=== PATIENT | female | born 1985 | race Caucasian/White ===

== ENCOUNTER 2017-06-02 01:32 | Emergency (ER) | payer SELFPAY ==
[~2017-06-02] VITALS: Ht 167.6 cm; Wt 113.5 kg
[2017-06-02 01:55] VITALS: BP 149/50; PULSE 96; RESP 18; TEMP 98.4; O2SAT 97
[2017-06-02] MEDS ORDERED: SODIUM CHLOR 0.9% 1000 ML INJ 1,000 ML IV SCH (01:57)
--- NOTE | 2017-06-02 01:57 | PD ---
HPI Chief Complaint: Alcohol/Drug Intoxication Time Seen by Provider: 01:54 Travel History International Travel<30 days: No Contact w/Intl Traveler<30days: No Traveled to known affect area: No History of Present Illness HPI The patient is a 32-year-old female that apparently was drinking white wine tonight and decided to go to a republican down the street. She went to the [employer] and fell in the driveway and apparently [facility] was called because she could not get up. There is no history of any specific trauma. She does not drink often and has not used alcohol. She may have had tequila at the [employer]. He denies drugs. [facility] Social History Tobacco Use: No Allergies-Medications (Allergen,Severity, Reaction): Coded Allergies: Penicillins (Verified Allergy, Intermediate, hives, 06/02/17) Reported Meds & Prescriptions Reported Meds & Active Scripts Active No Active Prescriptions or Reported Medications Review of Systems Except as stated in HPI: all other systems reviewed are Neg Physical Exam Exam Limitations: Intoxication, Altered Mental Status Narrative GENERAL: The patient is alert but uncooperative and will not answer questions. The patient appears intoxicated. SKIN: Focused skin assessment warm/dry. HEAD: Atraumatic. Normocephalic. Neither raccoon eyes or hernandez sign is present. EYES: Pupils equal and round. No scleral icterus. No injection or drainage. ENT: No nasal bleeding or discharge. Mucous membranes pink and moist. NECK: Trachea midline. No JVD. No C-spine tenderness or deformity is noted. CARDIOVASCULAR: Regular rate and rhythm. No murmur appreciated. RESPIRATORY: No accessory muscle use. Clear to auscultation. Breath sounds equal bilaterally. GASTROINTESTINAL: Abdomen soft, non-tender, nondistended. Hepatic and splenic margins not palpable. MUSCULOSKELETAL: No obvious deformities. No clubbing. No cyanosis. No edema. No T-spine or LS-spine tenderness is noted. NEUROLOGICAL: Awake and alert. No obvious cranial nerve deficits. Motor grossly within normal limits. Normal speech. PSYCHIATRIC: The patient appears intoxicated, judgment poor. Data Data Last Documented VS Vital Signs Date Time Temp Pulse Resp B/P (MAP) Pulse Ox O2 Delivery O2 Flow Rate FiO2 06/02/17 08:04 06/02/17 06:51 100 20 98 06/02/17 05:11 Nasal Cannula 2.00 06/02/17 01:55 98.4 Orders Orders Basic Metabolic Panel (Bmp) (06/02/17 01:57) Complete Blood Count With Diff (06/02/17 01:57) Blood Glucose (06/02/17 01:57) Ecg Monitoring (06/02/17 01:57) Iv Access Insert/Monitor (06/02/17 01:57) Oximetry (06/02/17 01:57) Sodium Chloride 0.9% Flush (Ns Flush) (06/02/17 02:00) Sodium Chlor 0.9% 1000 Ml Inj (Ns 1000 M (06/02/17 01:57) Alcohol (Ethanol) (06/02/17 01:57) Labs Laboratory Tests Test 06/02/17 01:30 White Blood Count 10.6 TH/MM3 Red Blood Count 4.83 MIL/MM3 Hemoglobin 13.9 GM/DL Hematocrit 42.8 % Mean Corpuscular Volume 88.6 FL Mean Corpuscular Hemoglobin 28.8 PG Mean Corpuscular Hemoglobin Concent 32.5 % Red Cell Distribution Width 12.4 % Platelet Count 360 TH/MM3 Mean Platelet Volume 7.5 FL Neutrophils (%) (Auto) 48.2 % Lymphocytes (%) (Auto) 41.8 % Monocytes (%) (Auto) 5.6 % Eosinophils (%) (Auto) 3.8 % Basophils (%) (Auto) 0.6 % Neutrophils # (Auto) 5.1 TH/MM3 Lymphocytes # (Auto) 4.4 TH/MM3 Monocytes # (Auto) 0.6 TH/MM3 Eosinophils # (Auto) 0.4 TH/MM3 Basophils # (Auto) 0.1 TH/MM3 CBC Comment DIFF FINAL Differential Comment Blood Urea Nitrogen 10 MG/DL Creatinine 0.87 MG/DL Random Glucose 111 MG/DL Calcium Level 8.6 MG/DL Sodium Level 142 MEQ/L Potassium Level 3.9 MEQ/L Chloride Level 110 MEQ/L Carbon Dioxide Level 24.1 MEQ/L Anion Gap 8 MEQ/L Estimat Glomerular Filtration Rate 76 ML/MIN Ethyl Alcohol Level 353 MG/DL MDM Medical Decision Making Medical Screen Exam Complete: Yes Emergency Medical Condition: Yes Medical Record Reviewed: Yes Interpretation(s) The CBC is normal. The basic metabolic profile shows a GFR of 76 and glucose 111 but is otherwise normal. The alcohol level was 353. Differential Diagnosis Alcohol intoxication, other drug intoxication, head trauma, electrolyte disorder , hypo-/hyperglycemia Narrative Course The patient has alcohol intoxication. She not only has a very high alcohol level but she is not used to drinking alcohol regularly. She will need to sleep at all. Emergency department because her oximetry started to fall to the upper 80s when she falls asleep on room air. Diagnosis Primary Impression: Alcohol intoxication Additional Instructions: She will need to completely discontinue alcohol and never drank alcohol to abuse again. This was a very dangerous thing for her to do tonight. If she has problems getting off of alcohol use Terrell Mendez. This should not be a problem however to have her stop alcohol. Med/Other Pt SpecificInfo: No Change to Meds Scripts No Active Prescriptions or Reported Meds Disposition: 01 DISCHARGE HOME Condition: Stable Javier George MD Jun 02, 2017 01:57
[2017-06-02] MEDS ORDERED: SODIUM CHLORIDE 0.9% FLUSH 10 ML FLUSH IV FLUSH PRN (02:00)
[2017-06-02 02:05] VITALS: RESP 18; O2SAT 97
[2017-06-02 02:19] LABS: AUTOMATED NEUTROPHIL # 5.1 TH/MM3 (1.8-7.7); BASOPHIL # 0.1 TH/MM3 (0-0.2); BASOPHIL % 0.6 % (0.0-2.0); EOSINOPHIL # 0.4 TH/MM3 (0-0.4); EOSINOPHIL % 3.8 % (0.0-4.0); HEMATOCRIT 42.8 % (35.0-46.0); HEMOGLOBIN 13.9 GM/DL (11.6-15.3); LYMPH % 41.8 % (9.0-44.0); LYMPHOCYTE # 4.4 TH/MM3 (1.0-4.8); MEAN CELL VOLUME 88.6 FL (80.0-100.0); MEAN CORPUSCULAR HEMOGLOBIN 28.8 PG (27.0-34.0); MEAN CORPUSCULAR HGB CONC 32.5 % (32.0-36.0); MEAN PLATELET VOLUME 7.5 FL (7.0-11.0); MONO % 5.6 % (0.0-8.0); MONOCYTE # 0.6 TH/MM3 (0-0.9); NEUT % 48.2 % (16.0-70.0); PLATELET COUNT 360 TH/MM3 (150-450); RED BLOOD COUNT 4.83 MIL/MM3 (4.00-5.30); RED CELL DISTRIBUTION WIDTH 12.4 % (11.6-17.2); WHITE BLOOD COUNT 10.6 TH/MM3 (4.0-11.0)
[2017-06-02 02:29] LABS: BICARBONATE 24.1 MEQ/L (21.0-32.0); CALCIUM 8.6 MG/DL (8.5-10.1)
[2017-06-02 02:33] LABS: CREATININE 0.87 MG/DL (0.50-1.00)
[2017-06-02 02:52] VITALS: BP 104/60; PULSE 85; RESP 20; O2SAT 93
[2017-06-02 05:11] VITALS: BP 118/75; PULSE 87; RESP 18; O2SAT 100
[2017-06-02 06:51] VITALS: BP 120/82; PULSE 100; RESP 20; O2SAT 98
== END 2017-06-02 08:06 | disposition home or self-care (01) ==
LOC: PHED 01:32
DX: F10.129 Alcohol abuse with intoxication, unspecified (principal); Y90.8 Blood alcohol level of 240 mg/100 ml or more
CPT/HCPCS: 80048; 80307; 85025; 96360; 99284; J7030